=== PATIENT | male | born 1980 | race Caucasian/White ===

== ENCOUNTER 2018-11-15 20:12 | Emergency (ER) | payer BC, MEDICAID, OTHER ==
[~2018-11-15] VITALS: Ht 162.6 cm; Wt 84.1 kg
[~2018-11-15 20:12] MED LIST: CLIN-27 PO; CYCL-1 PO; CYCL-394 PO; HYDR1TAB PO; IBUP-1051 PO; PHEN-786 PO
[2018-11-15] MEDS ORDERED: TETanus/Pertussis (Acell)/Diphther VAC/PF (Tdap-Adult) 0.5ml syringe IM ONE (20:45)
[2018-11-15] MEDS ORDERED: LIDOcaine 1% w/epiNEPHrine 1:200,000 30ml vial IM ONE (20:45)
[2018-11-15 21:40] VITALS: BP 136/92
== END 2018-11-15 21:52 | disposition home or self-care (01) ==
LOC: ER 20:14
DX: S01.01XA Laceration without foreign body of scalp, initial encounter (principal); F10.129 Alcohol abuse with intoxication, unspecified; J45.909 Unspecified asthma, uncomplicated; G89.29 Other chronic pain; F41.9 Anxiety disorder, unspecified; R22.0 Localized swelling, mass and lump, head; Z88.5 Allergy status to narcotic agent; Z79.2 Long term (current) use of antibiotics; Z79.899 Other long term (current) drug therapy; W18.09XA Striking against other object with subsequent fall, initial encounter; Y93.89 Activity, other specified; Y92.89 Other specified places as the place of occurrence of the external cause; Y99.8 Other external cause status; Y90.9 Presence of alcohol in blood, level not specified
CPT/HCPCS: 12002; 70450; 72125; 90471; 93005; 99284

== ENCOUNTER 2018-11-24 08:59 | Emergency (ER) | payer SELFPAY ==
[~2018-11-24] VITALS: Ht 167.6 cm; Wt 84.1 kg
[2018-11-24 09:03] VITALS: BP 147/94
== END 2018-11-24 09:30 | disposition home or self-care (01) ==
LOC: ER 08:59
DX: S01.01XD Laceration without foreign body of scalp, subsequent encounter (principal); J45.909 Unspecified asthma, uncomplicated; G89.29 Other chronic pain; F41.9 Anxiety disorder, unspecified; F10.99 Alcohol use, unspecified with unspecified alcohol-induced disorder; Z88.5 Allergy status to narcotic agent; Z79.899 Other long term (current) drug therapy; Z87.442 Personal history of urinary calculi; W22.8XXD Striking against or struck by other objects, subsequent encounter; Y90.9 Presence of alcohol in blood, level not specified
CPT/HCPCS: 99281

== ENCOUNTER 2019-02-12 09:06 | Emergency (ER) | payer BC ==
[~2019-02-12] VITALS: Ht 152.4 cm; Wt 85.0 kg
[2019-02-12] MEDS ORDERED: ondansetron/PF 4mg/2ml inj IV ONE (09:45)
[2019-02-12] MEDS ORDERED: normal saline 1000ML IV soln IVB ONE (09:45)
[2019-02-12 09:52] VITALS: BP 143/70
[2019-02-12 10:11] LABS: BASOPHILS # (AUTO) 0.1 X10'3 (0-0.2); EOSINOPHILS % (AUTO) 0.4 % (0-6); HEMATOCRIT 41.9 % (42.0-52.0); HEMOGLOBIN 14.4 g/dl (14.0-17.9); LYMPHOCYTES # (AUTO) 0.9 X10'3 (1.1-4.8); LYMPHOCYTES % (AUTO) 7.6 % (21-51); MEAN CORPUSCULAR HEMOGLOBIN 34.3 PG (27.0-31.0); MEAN CORPUSCULAR HGB CONC 34.5 g/dL (33.0-36.5); MEAN CORPUSCULAR VOLUME 99.4 FL (78-98); MONOCYTES # (AUTO) 0.8 X10'3 (0-0.9); MONOCYTES % (AUTO) 7.1 % (2-12); NEUTROPHILS # (AUTO) 9.6 X10'3 (1.8-7.7); NEUTROPHILS % (AUTO) 83.9 % (42-75); PLATELET COUNT 248 X10'3 (140-440); RED BLOOD COUNT 4.21 X10'6 (4.70-6.10); RED CELL DISTRIBUTION WIDTH 11.8 % (11.5-14.5); WHITE BLOOD COUNT 11.4 X10'3 (4.5-11.0)
--- NOTE | 2019-02-12 10:15 | NUR ---
Patient taken to CT
[2019-02-12 10:22] LABS: ALANINE AMINOTRANSFERASE 84 U/L (12-78); ALBUMIN 3.8 G/DL (3.4-5.0); ALBUMIN/GLOBULIN RATIO 0.9 (1.1-1.5); ALKALINE PHOSPHATASE 53 IU/L (46-116); ANION GAP 12 (8-16); ASPARTATE AMINO TRANSFERASE 58 U/L (10-37); BILIRUBIN,TOTAL 0.7 MG/DL (0.1-1.0); BLOOD UREA NITROGEN 7 MG/DL (7-18); BUN/CREATININE RATIO 10.1 (5.4-32.0); CALCIUM 9.1 MG/DL (8.5-10.1); CHLORIDE 101 MMOL/L (99-107); CREATININE 0.69 MG/DL (0.60-1.10); ETHANOL 0.046 GM/DL (0.0-0.010); GLUCOSE 120 MG/DL (70-104); LIPASE 87 U/L (73-393); POTASSIUM 4.2 MMOL/L (3.5-5.1); SODIUM 137 MMOL/L (135-145); eGFR > 90 ML/MIN
[2019-02-12 11:11] LABS: CLARITY,URINE SLIGHTLY CLOUDY (Clear); COLOR,URINE ORANGE (Yellow); UA COLLECTION TYPE URINAL
[2019-02-12 11:16] LABS: MUCUS STRANDS FEW /LPF (Neg); SQUAMOUS EPITHELIAL CELL,UR MODERATE /LPF (FEW)
[2019-02-12 11:17] LABS: BACTERIA,URINE 1+ /HPF (Neg); RBC,URINE 0-2 /HPF (0-2); WBC,URINE 0-4 /HPF (0-4)
[2019-02-12 11:23] LABS: URINE AMPHETAMINE SCREEN NEGATIVE (Neg); URINE BARBITUATE SCREEN NEGATIVE (Neg); URINE BENZODIAZEPINES SCREEN NEGATIVE (Neg); URINE CANNABINOID SCREEN POSITIVE (Neg); URINE COCAINE SCREEN NEGATIVE (Neg); URINE METHADONE SCREEN NEGATIVE (Neg); URINE OPIATE SCREEN NEGATIVE (Neg); URINE PHENCYCLIDINE SCREEN NEGATIVE (Neg)
[2019-02-12 12:35] LABS: OCCULT BLOOD STOOL POSITIVE (Neg)
== END 2019-02-12 11:59 | disposition home or self-care (01) ==
LOC: ER 09:08
DX: K57.30 Diverticulosis of large intestine without perforation or abscess without bleeding (principal); F10.129 Alcohol abuse with intoxication, unspecified; J45.909 Unspecified asthma, uncomplicated; G89.29 Other chronic pain; F41.9 Anxiety disorder, unspecified; R11.2 Nausea with vomiting, unspecified; Z87.442 Personal history of urinary calculi; Z88.5 Allergy status to narcotic agent; Z79.899 Other long term (current) drug therapy; Y90.0 Blood alcohol level of less than 20 mg/100 ml
CPT/HCPCS: 36415; 74176; 80053; 80305; 80320; 81001; 82272; 83690; 85025; 96361; 96374; 99284; J2405; J7030

== ENCOUNTER 2019-06-23 12:28 | Emergency (ER) | payer BC ==
[~2019-06-23] VITALS: Ht 165.1 cm; Wt 84.1 kg
[2019-06-23 12:36] VITALS: BP 183/109
[2019-06-23] MEDS ORDERED: ALBU8HFA PO (13:11)
== END 2019-06-23 14:05 | disposition home or self-care (01) ==
LOC: ER 12:29
DX: J06.9 Acute upper respiratory infection, unspecified (principal); F17.200 Nicotine dependence, unspecified, uncomplicated; Z88.5 Allergy status to narcotic agent
CPT/HCPCS: 71045; 99283

== ENCOUNTER 2019-09-16 22:44 | Emergency (ER) | payer BC ==
[~2019-09-16] VITALS: Ht 165.1 cm; Wt 85.7 kg
[2019-09-17] MEDS ORDERED: cyclobenzaprine 10mg tablet PO ONE (00:05)
[2019-09-17] MEDS ORDERED: naproxen 500mg tablet PO ONE (00:05)
[2019-09-17] MEDS ORDERED: HYDROcodone/acetaminophen 10/325mg tab PO ONE (00:05)
[2019-09-17] MEDS ORDERED: HYDR-4383 PO (00:10)
[2019-09-17] MEDS ORDERED: CYCL-1 PO (00:10)
[2019-09-17] MEDS ORDERED: NAPR-56 PO (00:10)
--- NOTE | 2019-09-17 00:45 | NUR ---
PT ASKING OF HE COULD GO HOME SAYS HE DOES NOT WANT TO BE HERE ANYMORE . PT STSTES HE WILL FILL HIS PRESCRIPTIONS AND TAKE HIS MEDICATION AT HOME .
[2019-09-17 00:55] VITALS: BP 153/94
== END 2019-09-17 00:47 | disposition home or self-care (01) ==
LOC: ER 22:45
DX: S30.1XXA Contusion of abdominal wall, initial encounter (principal); R07.81 Pleurodynia; J45.909 Unspecified asthma, uncomplicated; G89.29 Other chronic pain; F41.9 Anxiety disorder, unspecified; Z72.89 Other problems related to lifestyle; Z88.5 Allergy status to narcotic agent; Z79.2 Long term (current) use of antibiotics; Z79.899 Other long term (current) drug therapy; Y93.72 Activity, wrestling; Y93.89 Activity, other specified; Y92.89 Other specified places as the place of occurrence of the external cause; Y99.8 Other external cause status
CPT/HCPCS: 71046; 99284

== ENCOUNTER 2020-01-19 11:38 | Emergency (ER) | payer BC ==
[~2020-01-19] VITALS: Ht 165.1 cm; Wt 91.8 kg
[~2020-01-19 11:38] MED LIST changes: +HYDR-4383 PO
[2020-01-19 12:16] LABS: BASOPHILS # (AUTO) 0.1 X10'3 (0-0.2); BASOPHILS % (AUTO) 0.8 % (0-1); EOSINOPHILS % (AUTO) 0.2 % (0-6); HEMATOCRIT 40.6 % (42.0-52.0); HEMOGLOBIN 13.9 g/dl (14.0-17.9); LYMPHOCYTES # (AUTO) 1.3 X10'3 (1.1-4.8); LYMPHOCYTES % (AUTO) 13.2 % (21-51); MEAN CORPUSCULAR HEMOGLOBIN 35.8 PG (27.0-31.0); MEAN CORPUSCULAR HGB CONC 34.2 g/dL (33.0-36.5); MEAN CORPUSCULAR VOLUME 104.8 FL (78-98); MEAN PLATELET VOLUME 7.3 FL (7.4-10.4); MONOCYTES # (AUTO) 0.8 X10'3 (0-0.9); MONOCYTES % (AUTO) 7.7 % (2-12); NEUTROPHILS # (AUTO) 7.8 X10'3 (1.8-7.7); NEUTROPHILS % (AUTO) 78.1 % (42-75); PLATELET COUNT 256 X10'3 (140-440); RED BLOOD COUNT 3.87 X10'6 (4.70-6.10); RED CELL DISTRIBUTION WIDTH 12.3 % (11.5-14.5)
[2020-01-19 12:24] LABS: ALANINE AMINOTRANSFERASE 38 U/L (12-78); ALBUMIN 4.1 G/DL (3.4-5.0); ALBUMIN/GLOBULIN RATIO 1.1 (1.1-1.5); ALKALINE PHOSPHATASE 59 IU/L (46-116); ANION GAP 13 (8-16); ASPARTATE AMINO TRANSFERASE 37 U/L (10-37); BILIRUBIN,TOTAL 0.5 MG/DL (0.1-1.0); BLOOD UREA NITROGEN 5 MG/DL (7-18); BUN/CREATININE RATIO 7.6 (5.4-32.0); CALCIUM 8.7 MG/DL (8.5-10.1); CHLORIDE 104 MMOL/L (99-107); CREATININE 0.66 MG/DL (0.60-1.10); GLUCOSE 94 MG/DL (70-104); POTASSIUM 3.8 MMOL/L (3.5-5.1); SODIUM 140 MMOL/L (135-145); TOTAL CARBON DIOXIDE 23.4 MMOL/L (24-32); eGFR > 90 ML/MIN
[2020-01-19 14:29] LABS: D-DIMER 0.89 MG/L FEU (0-0.50)
[2020-01-19 14:35] LABS: LIPASE 63 U/L (73-393)
[2020-01-19] MEDS ORDERED: mag hydrox/Alum hydrox/simeth 30ml oral suspension PO ONE (14:40)
[2020-01-19] MEDS ORDERED: LIDOcaine Viscous 15ml cup MM ONE (14:40)
[2020-01-19] MEDS ORDERED: sucralfate 1 gm tablet PO ONE (14:40)
[2020-01-19] MEDS ORDERED: iohexol 350MG/ML 100ml bottle IV ONE (15:28)
[2020-01-19] MEDS ORDERED: famotidine/PF 10 mg/ml inj IV ONE (15:50)
[2020-01-19 16:17] LABS: CLARITY,URINE SLIGHTLY CLOUDY (Clear); COLOR,URINE AMBER (Yellow); GLUCOSE, URINE NEGATIVE (Neg); KETONES,URINE 40 mg/dl (Neg); LEUKOCYTE ESTERASE ,URINE NEGATIVE (Neg); NITRITES, URINE NEGATIVE (Neg); OCCULT BLOOD,URINE NEGATIVE (Neg); PH,URINE 5.5 (4.8-8.0); PROTEIN,URINE TRACE mg/dl (Neg); UA COLLECTION TYPE CLN CATCH MIDSTREAM; UROBILINOGEN,URINE 0.2 E.U/dL (0.2-1.0)
[2020-01-19 16:23] LABS: URINE AMPHETAMINE SCREEN NEGATIVE (Neg); URINE BARBITUATE SCREEN NEGATIVE (Neg); URINE BENZODIAZEPINES SCREEN NEGATIVE (Neg); URINE CANNABINOID SCREEN POSITIVE (Neg); URINE COCAINE SCREEN NEGATIVE (Neg); URINE METHADONE SCREEN NEGATIVE (Neg); URINE OPIATE SCREEN NEGATIVE (Neg); URINE PHENCYCLIDINE SCREEN NEGATIVE (Neg)
[2020-01-19 16:26] LABS: MUCUS STRANDS MANY /LPF (Neg); SQUAMOUS EPITHELIAL CELL,UR MANY /LPF (FEW)
[2020-01-19 16:27] LABS: TRANSITIONAL EPI CELLS,URINE FEW /HPF
[2020-01-19 16:28] LABS: BACTERIA,URINE FEW /HPF (Neg); RBC,URINE 0-2 /HPF (0-2)
[2020-01-19] MEDS ORDERED: normal saline 1000ML IV soln IVB ONE (16:30)
[2020-01-19] MEDS ORDERED: PANT-47 PO (17:42)
[2020-01-19 17:52] VITALS: BP 157/81
== END 2020-01-19 17:53 | disposition home or self-care (01) ==
LOC: ER 11:39
DX: R07.89 Other chest pain (principal); J45.909 Unspecified asthma, uncomplicated; G89.29 Other chronic pain; Z87.442 Personal history of urinary calculi; Z79.899 Other long term (current) drug therapy; Z88.5 Allergy status to narcotic agent
CPT/HCPCS: 36415; 71045; 71275; 80053; 80305; 81001; 83690; 83880; 84443; 84484; 85025; 85379; 93005; 96361; 96374; 99285; J3490; J7030; Q9967

== ENCOUNTER 2021-09-19 14:37 | Emergency (ER) | payer BC, OTHER ==
[~2021-09-19] VITALS: Ht 162.6 cm; Wt 125.5 kg
[~2021-09-19 14:37] MED LIST changes: +CARV3.12 PO; -CLIN-27 PO; -CYCL-1 PO; -CYCL-394 PO; +FURO-150 PO; -HYDR-4383 PO; -HYDR1TAB PO; -IBUP-1051 PO; +LISI2.5T14 PO; -PHEN-786 PO; +POTA10TA37 PO
[2021-09-19 15:37] LABS: HEMOGLOBIN 14.5 g/dl (14.0-17.9); MONOCYTES # (AUTO) 0.5 X10'3 (0-0.9)
[2021-09-19 15:39] LABS: BASOPHILS % (AUTO) 0.4 % (0-1); EOSINOPHILS # (AUTO) 0.2 X10'3 (0-0.9); HEMATOCRIT 42.8 % (42.0-52.0); LYMPHOCYTES % (AUTO) 38.2 % (21-51); MEAN CORPUSCULAR HEMOGLOBIN 36.1 PG (27.0-31.0); MEAN CORPUSCULAR HGB CONC 33.8 g/dL (33.0-36.5); MEAN CORPUSCULAR VOLUME 106.7 FL (78-98); MEAN PLATELET VOLUME 7.1 FL (7.4-10.4); MONOCYTES % (AUTO) 10.1 % (2-12); NEUTROPHILS # (AUTO) 2.5 X10'3 (1.8-7.7); NEUTROPHILS % (AUTO) 48.3 % (42-75); PLATELET COUNT 260 X10'3 (140-440); RED BLOOD COUNT 4.01 X10'6 (4.70-6.10); RED CELL DISTRIBUTION WIDTH 13.8 % (11.5-14.5); WHITE BLOOD COUNT 5.3 X10'3 (4.5-11.0)
[2021-09-19 15:52] LABS: ALANINE AMINOTRANSFERASE 101 U/L (12-78); ALBUMIN 3.3 G/DL (3.4-5.0); ALBUMIN/GLOBULIN RATIO 0.8 (1.1-1.5); ALKALINE PHOSPHATASE 90 IU/L (46-116); ANION GAP 9 (8-16); ASPARTATE AMINO TRANSFERASE 98 U/L (10-37); BILIRUBIN,TOTAL 0.6 MG/DL (0.1-1.0); BLOOD UREA NITROGEN 5 MG/DL (7-18); BUN/CREATININE RATIO 7.2 (5.4-32.0); CALCIUM 8.4 MG/DL (8.5-10.1); CHLORIDE 104 MMOL/L (99-107); CREATININE 0.69 MG/DL (0.60-1.10); GLUCOSE 102 MG/DL (70-104); POTASSIUM 3.9 MMOL/L (3.5-5.1); SODIUM 141 MMOL/L (135-145); TOTAL CARBON DIOXIDE 28.1 MMOL/L (24-32); TOTAL PROTEIN 7.4 G/DL (6.4-8.2); eGFR > 90 ML/MIN
[2021-09-19] MEDS ORDERED: albuterol 2.5 MG/3 ML nebule NEB ONE (20:05)
[2021-09-19] MEDS ORDERED: furosemide 10 MG/1 ML 10ml inj IV ONE (20:05)
[2021-09-19 21:53] VITALS: BP 179/104
[2021-09-19] MEDS ORDERED: ALB0.5UD IH (23:42)
[2021-09-19] MEDS ORDERED: LISI20TA28 PO (23:42)
[2021-09-19] MEDS ORDERED: FURO40TA4 PO (23:42)
== END 2021-09-20 | disposition home or self-care (01) ==
LOC: ER 14:37
DX: I50.9 Heart failure, unspecified (principal); J45.909 Unspecified asthma, uncomplicated; G89.29 Other chronic pain; Z87.442 Personal history of urinary calculi; Z72.89 Other problems related to lifestyle; Z88.5 Allergy status to narcotic agent; Z79.899 Other long term (current) drug therapy
CPT/HCPCS: 36415; 71045; 80053; 83880; 84484; 85025; 93005; 94640; 96374; 99285; J1940; 94760

== ENCOUNTER 2022-06-25 15:02 | Emergency (ER) | payer SELFPAY ==
[~2022-06-25] VITALS: Ht 162.6 cm; Wt 119.4 kg
[~2022-06-25 15:02] MED LIST changes: +AMLO5TAB16 PO; +ASPI81TA53 OGT; -CARV3.12 PO; -FURO-150 PO; -LISI2.5T14 PO; +METO50TA16 PO; -POTA10TA37 PO; +THIA50TA10 PO
[2022-06-25 15:29] VITALS: BP 140/109
[2022-06-25] MEDS ORDERED: AMLO5TAB PO (15:57)
[2022-06-25] MEDS ORDERED: HYDR-3965 PO (15:57)
[2022-06-25] MEDS ORDERED: CYCL-1 PO (15:57)
[2022-06-25] MEDS ORDERED: METO50TA17 PO (15:57)
[2022-06-25] MEDS ORDERED: HYDROcodone/acetaminophen 10/325mg tab PO ONE (16:00)
[2022-06-25] MEDS ORDERED: cyclobenzaprine 10mg tablet PO ONE (16:00)
== END 2022-06-25 16:54 | disposition home or self-care (01) ==
LOC: ER 15:02
DX: M54.59 Other low back pain (principal); S00.31XA Abrasion of nose, initial encounter; I11.0 Hypertensive heart disease with heart failure; J45.909 Unspecified asthma, uncomplicated; G89.29 Other chronic pain; M54.9 Dorsalgia, unspecified; F31.9 Bipolar disorder, unspecified; F12.10 Cannabis abuse, uncomplicated; F15.10 Other stimulant abuse, uncomplicated; I50.9 Heart failure, unspecified; Z88.5 Allergy status to narcotic agent; Z79.899 Other long term (current) drug therapy; Z79.1 Long term (current) use of non-steroidal anti-inflammatories (NSAID); Z79.2 Long term (current) use of antibiotics; Y04.8XXA Assault by other bodily force, initial encounter; Y93.89 Activity, other specified; Y92.89 Other specified places as the place of occurrence of the external cause; Y99.8 Other external cause status
CPT/HCPCS: 99283

== ENCOUNTER 2022-08-12 17:17 | Emergency (ER) | payer OTHER ==
[~2022-08-12] VITALS: Ht 167.6 cm; Wt 245.0 kg
[~2022-08-12 17:17] MED LIST changes: +AMLO5TAB PO; +CYCL-1 PO; +METO50TA17 PO
[2022-08-12 17:48] LABS: BASOPHILS # (AUTO) 0.1 X10'3 (0-0.2); BASOPHILS % (AUTO) 0.9 % (0-1); EOSINOPHILS # (AUTO) 0.3 X10'3 (0-0.9); HEMATOCRIT 46.5 % (42.0-52.0); HEMOGLOBIN 16.1 g/dl (14.0-17.9); LYMPHOCYTES # (AUTO) 1.5 X10'3 (1.1-4.8); LYMPHOCYTES % (AUTO) 10.7 % (21-51); MEAN CORPUSCULAR HEMOGLOBIN 31.5 PG (27.0-31.0); MEAN CORPUSCULAR HGB CONC 34.5 g/dL (33.0-36.5); MEAN CORPUSCULAR VOLUME 91.2 FL (78-98); MEAN PLATELET VOLUME 7.5 FL (7.4-10.4); MONOCYTES # (AUTO) 0.8 X10'3 (0-0.9); MONOCYTES % (AUTO) 5.8 % (2-12); NEUTROPHILS # (AUTO) 11.3 X10'3 (1.8-7.7); NEUTROPHILS % (AUTO) 80.6 % (42-75); PLATELET COUNT 320 X10'3 (140-440); RED CELL DISTRIBUTION WIDTH 13.2 % (11.5-14.5)
[2022-08-12] MEDS ORDERED: ondansetron/PF 4mg/2ml inj ONE (17:50)
[2022-08-12 17:58] LABS: ALANINE AMINOTRANSFERASE 49 U/L (12-78); ALBUMIN 3.6 G/DL (3.4-5.0); ALBUMIN/GLOBULIN RATIO 0.9 (1.1-1.5); ALKALINE PHOSPHATASE 83 IU/L (46-116); ANION GAP 7 (8-16); ASPARTATE AMINO TRANSFERASE 35 U/L (10-37); BILIRUBIN,TOTAL 0.6 MG/DL (0.1-1.0); BLOOD UREA NITROGEN 10 MG/DL (7-18); BUN/CREATININE RATIO 11.4 (10.0-20.0); CALCIUM 9.6 MG/DL (8.5-10.1); CHLORIDE 102 MMOL/L (99-107); CREATININE 0.88 MG/DL (0.60-1.10); GLUCOSE 114 MG/DL (70-104); POTASSIUM 4.3 MMOL/L (3.5-5.1); SODIUM 135 MMOL/L (135-145); TOTAL PROTEIN 7.8 G/DL (6.4-8.2); eGFR > 90 ML/MIN
[2022-08-12] MEDS ORDERED: ipratropium/albuterol 3ml nebule NEB ONE (18:30)
[2022-08-12] MEDS ORDERED: ciprofloxacin 250mg tablet PO ONE (18:30)
[2022-08-12] MEDS ORDERED: CIPR-202 PO (19:25)
[2022-08-12] MEDS ORDERED: ALBU2.5V13 NEB (19:25)
[2022-08-12 19:35] VITALS: BP 134/89
== END 2022-08-12 19:38 | disposition home or self-care (01) ==
LOC: ER 17:17
DX: J44.1 Chronic obstructive pulmonary disease with (acute) exacerbation (principal); R07.89 Other chest pain; R11.2 Nausea with vomiting, unspecified; I11.0 Hypertensive heart disease with heart failure; I50.9 Heart failure, unspecified; J45.909 Unspecified asthma, uncomplicated; F12.90 Cannabis use, unspecified, uncomplicated; F15.20 Other stimulant dependence, uncomplicated; Z88.5 Allergy status to narcotic agent
CPT/HCPCS: 71045; 80053; 83880; 84484; 85025; 93005; 94640; 99285; J2405

== ENCOUNTER 2023-08-09 20:05 | Emergency (ER) | payer OTHER ==
[~2023-08-09] VITALS: Ht 162.6 cm; Wt 104.5 kg
[~2023-08-09 20:05] MED LIST changes: +ALBU2.5V13 NEB
[2023-08-09 20:44] VITALS: BP 119/89; PULSE 113; RESP 18; TEMP 98.3; O2SAT 97
[2023-08-09 21:05] LABS: BASOPHILS # (AUTO) 0.1 X10'3 (0-0.2); BASOPHILS % (AUTO) 0.6 % (0-1); EOSINOPHILS # (AUTO) 0.2 X10'3 (0-0.9); EOSINOPHILS % (AUTO) 1.2 % (0-6); HEMATOCRIT 45.8 % (42.0-52.0); LYMPHOCYTES # (AUTO) 3.5 X10'3 (1.1-4.8); LYMPHOCYTES % (AUTO) 20.5 % (21-51); MEAN CORPUSCULAR HEMOGLOBIN 32.6 PG (27.0-31.0); MEAN CORPUSCULAR HGB CONC 34.9 g/dL (33.0-36.5); MEAN CORPUSCULAR VOLUME 93.6 FL (78-98); MEAN PLATELET VOLUME 7.6 FL (7.4-10.4); MONOCYTES # (AUTO) 1.3 X10'3 (0-0.9); MONOCYTES % (AUTO) 7.5 % (2-12); NEUTROPHILS # (AUTO) 11.9 X10'3 (1.8-7.7); NEUTROPHILS % (AUTO) 70.2 % (42-75); PLATELET COUNT 372 X10'3 (140-440); RED BLOOD COUNT 4.89 X10'6 (4.70-6.10); RED CELL DISTRIBUTION WIDTH 12.9 % (11.5-14.5)
[2023-08-09 21:25] LABS: ALBUMIN 4.2 G/DL (3.4-5.0); ANION GAP 9 (8-16); BLOOD UREA NITROGEN 12 MG/DL (7-18); BUN/CREATININE RATIO 11.9 (10.0-20.0); CALCIUM 9.5 MG/DL (8.5-10.1); CHLORIDE 105 MMOL/L (99-107); CREATININE 1.01 MG/DL (0.60-1.10); GLUCOSE 101 MG/DL (70-104); POTASSIUM 3.8 MMOL/L (3.5-5.1); PRO BRAIN NATRIURETIC PEPTIDE 38 PG/ML (0-125); SODIUM 139 MMOL/L (135-145); TOTAL CARBON DIOXIDE 25.1 MMOL/L (24-32); eCRCL 80 ML/MIN; eGFR 81 ML/MIN
== END 2023-08-10 00:23 | disposition left against medical advice (07) ==
LOC: ER 20:05
DX: R07.89 Other chest pain (principal); Z53.21 Procedure and treatment not carried out due to patient leaving prior to being seen by health care provider
CPT/HCPCS: 36415; 71045; 80048; 83880; 84484; 85025; 93005